=== PATIENT | female | born 1960 | race African-American/Black ===

== ENCOUNTER 2017-04-08 11:03 | Observation (INO) | payer OTHER ==
--- NOTE | 2017-04-08 11:35 | PDOC ---
History of Present Illness - General Chief Complaint: Injury Stated Complaint: FALL Time Seen by Provider: 04/08/17 11:23 History Source: Patient Exam Limitations: No Limitations - History of Present Illness Initial Comments: 04/08/17 11:35 CHIEF COMPLAINT: Syncopal episode yesterday sent from the [facility] for CT scan of the head HISTORY OF PRESENT ILLNESS: Patient is a 57-year-old female with history of hep C, HIV, hypertension, renal insufficiency was seen at the [facility] by Kimberly today, patient described to practitioner that she may have had a syncopal episode yesterday woke up with the headache had c/o dizziness and "blacked out for a second". Patient slid to the floor remembers the entire incident at the Center today EKG performed unchanged from previous case was discussed with Dr. Aragon wanted patient to come to emergency department for Syncopal workup. Patient currently denies any headache, no LOC, ambulatory without difficulty. No chest pain or shortness of breath. Vital signs are stable. Patient denies any neurological deficits. MEDS:[ See medication list] ALLERGIES: [Penicillin, aspirin, ibuprofen, eggs, prochlorperazine] PCP: [Dr. Aragon] REVIEW OF SYSTEMS: GENERAL/CONSTITUTIONAL: Awake alert and oriented HEAD, EYES, EARS, NOSE AND THROAT: No change in vision. No facial edema, no bruising. NO active bleeding. Nares intact. RESPIRATORY: No cough, wheezing, or hemoptysis. CARDIAC: Denies chest pain, no shortness of breathe. MUSCULOSKELETAL: No spinal point tenderness, Good ROM to all four extremeties. NO CVA tenderness. [No] lateral neck pain. GI/: Denies abdominal pain, no nausea or vomiting, no bloody stool, no Hematuria. SKIN : No erythema or bruising noted. No abrasion or lacerations. NEUROLOGIC: LOC for "a few seconds" , no numbness or tingling. PHYSICAL EXAM: GENERAL: Awake and alert and oriented x3. EYES: The pupils are equal, round, and reactive to light, with clear, conjunctiva. Good extraocular movement. No nystagmus NOSE: No nasal trauma . Midface stable MOUTH: Poor dentition EARS: The ear canals and tympanic membranes are normal without trauma. No drainage. NECK: No Lower cervical C-spine tenderness, no pain with chin to chest. CHEST: The lungs are clear without crackles, or wheezes. No subcutaneous emphysema. No crepitus. HEART: Heart is regular rhythm, with normal S1 and S2, no murmurs. ABDOMEN: The abdomen is soft and nontender with normal bowel sounds. There is no guarding or rebound. MUSCULOSKELETAL: No spinal point tenderness. No bruising or erythema. Pelvis stable. EXTREMITIES: Extremities are normal. No visible traumatic injury. NEUROLOGICAL:Mental status: The patient is oriented x3. No Generalized headache , Romberg [-] Cranial nerves: Cranial nerves II through XII are intact Motor: The upper extremities are 5 over 5 in all muscle groups. The lower extremities are 5 over 5 in all muscle groups. Sensation: Sensation is intact to light touch throughout. Cerebellar: Nglcjt-pnphtu-[id number] is normal in both upper extremities. Heel-knee- vanegas is normal in both lower extremities. Reflexes: 2+ and symmetric in the upper and lower extremities. Gait: Normal. Heel and toe walking are normal. Tandem gait is normal. SKIN: Without edema, erythema or bruising. No abrasions or lacerations. Past History - Past Medical History Allergies/Adverse Reactions: Allergies Allergy/AdvReac Type Severity Reaction Status Date / Time Penicillins Allergy Severe Verified 04/08/17 11:09 aspirin Allergy Intermediate Verified 04/08/17 11:09 ibuprofen Allergy Intermediate Verified 04/08/17 11:09 prochlorperazine edisylate Allergy Intermediate Verified 04/08/17 11:09 [From Compazine] eggs Allergy Intermediate Uncoded 04/08/17 11:09 Home Medications: Ambulatory Orders Albuterol 0.083% Nebulizer Zahira [Ventolin 0.083% Nebulizer Soln -] 1 neb NEB Q6H #1 box 10/15/16 Ondansetron [Zofran -] 4 mg PO DAILY #30 tablet 10/15/16 Acetaminophen [Tylenol] 1 - 2 dis.syr PO BID PRN #60 tablet 12/30/16 Mirtazapine [Remeron -] 30 mg PO DAILY #30 tablet 03/12/17 Zolpidem Tartrate [Ambien] 10 mg PO HS #30 tablet MDD 1 03/12/17 Abacavir Sulfate [Ziagen -] 300 mg PO BID #60 tablet 04/01/17 Albuterol Sulfate Inhaler - [Ventolin HFA Inhaler -] 2 inh PO Q6H #1 inh Amlodipine Besylate/Benazepril [Lotrel 5-10 mg Capsule] 1 cap PO DAILY #30 cap 04/01/17 Calcium Carbonate/Vitamin D3 [Calcium 500 + Vit D Caplet] 1 each PO BID #60 tablet 04/01/17 Lamivudine [Epivir -] 150 mg PO ONCE #30 tablet 04/01/17 Lopinavir/Ritonavir [Kaletra 200-50 mg Tablet] 1 each PO BID #120 tablet Loratadine [Claritin -] 10 mg PO DAILY #30 tablet 04/01/17 Multivitamin,Therapeutic [Oncovite] 1 each PO DAILY #30 tablet 04/01/17 Anemia: Yes Asthma: Yes Cancer: No Cardiac Disorders: No CVA: No COPD: No CHF: No Dementia: No Diabetes: No GI Disorders: No Disorders: No HTN: Yes Hypercholesterolemia: No Liver Disease: Yes (HEP C) Seizures: No Thyroid Disease: No - Surgical History Abdominal Surgery: Yes Appendectomy: No Cardiac Surgery: No Cholecystectomy: No Lung Surgery: No Neurologic Surgery: Yes (HEMATOMA NO SX) Orthopedic Surgery: No - Suicide/Smoking/Psychosocial Hx Smoking History: Never smoked Have you smoked in the past 12 months: No Number of Cigarettes Smoked Daily: 0 If you are a former smoker, when did you quit?: 11YRS Cigars Per Day: 0 Hx Alcohol Use: No Drug/Substance Use Hx: No Substance Use Type: None Hx Substance Use Treatment: No *Physical Exam - Vital Signs Last Vital Signs Temp Pulse Resp BP Pulse Ox 97.9 F 80 19 138/87 99 04/08/17 11:09 04/08/17 11:09 04/08/17 11:09 04/08/17 11:09 04/08/17 11:09 ED Treatment Course - LABORATORY CBC & Chemistry Diagram: 04/08/17 12:15 04/08/17 12:15 Medical Decision Making - Medical Decision Making 04/08/17 11:44 A/P: Patient sent to the emergency department for syncopal episode yesterday, denies any current complaint. Plan: Patient to be seen in main emergency department, CT of the head ordered CBC, CMP, cardiac enzymes, saline lock, EKG. Patient will be transferred to main emergency department after CT scan for further evaluation and workup., Report to Magdalena GONZALEZ . *DC/Admit/Observation/Transfer Diagnosis at time of Disposition: Syncope, Dizziness - Referrals - Patient Instructions - Post Discharge Activity
--- NOTE | 2017-04-08 12:25 | PDOC ---
*Physical Exam - Vital Signs Last Vital Signs Temp Pulse Resp BP Pulse Ox 97.9 F 80 19 138/87 99 04/08/17 11:09 04/08/17 11:09 04/08/17 11:09 04/08/17 11:09 04/08/17 11:09 Heart Score/ECG Review - ECG Intrepretation Rhythm: Regular Rhythm (rate 74 with a right bundle branch block. When compared to 2014 right bundle branch block is new.) ED Treatment Course - LABORATORY CBC & Chemistry Diagram: 04/08/17 12:15 04/09/17 05:25 Medical Decision Making - Medical Decision Making 04/08/17 12:03 Patient sent to the main ED for further evaluation of syncopal episode yesterday. Patient states yesterday was walking the streets when she had felt dizzy without any chest pain shortness of breath or visual changes when next thing she knows she woke up on the ground with by standard surrounding her. As per bystanders patient had no generalized tremor or vomiting. Patient then went to her primary care physician at [facility] today where she seen for HIV and had mentioned the above. Patient had a EKG done and then sent to the hospital for further evaluation. Patient upon my arrival had a head CT completed labs are pending and EKG pending. Patient is currently asymptomatic with no complaints of headache visual changes, chest pain or shortness of breath. Patient states does have history of headaches and this was not the worst headache of her life. 04/08/17 12:[address] shows no appreciable interval change from 07/13/2013 for evidence of intracranial hemorrhage, mass effect or hydrocephalus. 04/08/17 13:50 Laboratory Tests 04/08/17 04/08/17 12:15 12:15 WBC 4.9 Hgb 11.8 Hct 37.5 Plt Count 261 Sodium 143 Potassium 3.9 Chloride 108 H Carbon Dioxide 26 Anion Gap 9 BUN 10 D Creatinine 1.0 Random Glucose 94 AST 17 D ALT 15 Alkaline Phosphatase 121 H Troponin I < 0.02 Patient unable to recall if she has history of right bundle branch block. 04/08/17 14:23 Case discussed with hospitalist and accepted to telemetry observation status under Dr. Angelo. *DC/Admit/Observation/Transfer Diagnosis at time of Disposition: Syncope, Dizziness - Discharge Dispostion Disposition: HOME Condition at time of disposition: Good Admit: Yes - Referrals - Patient Instructions - Post Discharge Activity
[2017-04-08 12:44] LABS: BASO % 0.4 % (0-2.0); EOS % 2.2 % (0-4.5); MCH 29.5 pg (25.7-33.7); MCHC 31.4 g/dl (32.0-36.0); MEAN CELL VOLUME 93.8 fl (80-96); MEAN PLT VOLUME 7.5 fl (7.5-11.1); NEUT % 54.8 % (42.8-82.8); PLATELET COUNT 261 K/MM3 (134-434); RDW 14.3 % (11.6-15.6); WHITE BLOOD COUNT 4.9 K/mm3 (4.0-10.0)
[2017-04-08 13:09] LABS: ANION GAP 9 (8-16); CALCIUM 9.4 mg/dL (8.5-10.1); CO2 26 mmol/L (21-32); GLUCOSE,RANDOM 94 mg/dL (74-106); SGPT/ALT 15 U/L (12-78)
[2017-04-08 13:13] LABS: ALK PHOS 121 U/L (45-117); BILIRUBIN,TOTAL 0.2 mg/dL (0.2-1.0); CPK 162 IU/L (26-192); TOT PROT 7.9 g/dl (6.4-8.2); TROPONIN I < 0.02 ng/ml (0.00-0.05)
[2017-04-08 13:14] LABS: SGOT/AST 17 U/L (15-37)
--- NOTE | 2017-04-08 14:46 | HP ---
CHIEF COMPLAINT: PCP: HISTORY OF PRESENT ILLNESS: ER course was notable for: (1) (2) (3) Recent Travel: PAST MEDICAL HISTORY: PAST SURGICAL HISTORY: Social History: Smoking: Alcohol: Drugs: Family History: Allergies Penicillins Allergy (Severe, Verified 04/08/17 11:09) Rash, vomiting aspirin Allergy (Intermediate, Verified 04/08/17 11:09) ibuprofen Allergy (Intermediate, Verified 04/08/17 11:09) prochlorperazine edisylate [From Compazine] Allergy (Intermediate, Verified 11:09) eggs Allergy (Intermediate, Uncoded 04/08/17 11:09) HOME MEDICATIONS: Home Medications Medication Instructions Recorded Albuterol 0.083% Nebulizer Zahira 1 neb NEB Q6H #1 box 10/15/16 [Ventolin 0.083% Nebulizer Soln -] Ondansetron [Zofran -] 4 mg PO DAILY #30 tablet 10/15/16 Acetaminophen [Tylenol] 1 - 2 dis.syr PO BID PRN #60 tablet 12/30/16 Mirtazapine [Remeron -] 30 mg PO DAILY #30 tablet 03/12/17 Zolpidem Tartrate [Ambien] 10 mg PO HS #30 tablet MDD 1 03/12/17 Abacavir Sulfate [Ziagen -] 300 mg PO BID #60 tablet 04/01/17 Albuterol Sulfate Inhaler - 2 inh PO Q6H #1 inh 04/01/17 [Ventolin HFA Inhaler -] Amlodipine Besylate/Benazepril 1 cap PO DAILY #30 cap 04/01/17 [Lotrel 5-10 mg Capsule] Calcium Carbonate/Vitamin D3 1 each PO BID #60 tablet 04/01/17 [Calcium 500 + Vit D Caplet] Lamivudine [Epivir -] 150 mg PO ONCE #30 tablet 04/01/17 Lopinavir/Ritonavir [Kaletra 1 each PO BID #120 tablet 04/01/17 200-50 mg Tablet] Loratadine [Claritin -] 10 mg PO DAILY #30 tablet 04/01/17 Multivitamin,Therapeutic [Oncovite] 1 each PO DAILY #30 tablet 04/01/17 REVIEW OF SYSTEMS CONSTITUTIONAL: Absent: fever, chills, diaphoresis, generalized weakness, malaise, loss of appetite, weight change HEENT: Absent: rhinorrhea, nasal congestion, throat pain, throat swelling, difficulty swallowing, mouth swelling, ear pain, eye pain, visual changes CARDIOVASCULAR: Absent: chest pain, syncope, palpitations, irregular heart rate, lightheadedness , peripheral edema RESPIRATORY: Absent: cough, shortness of breath, dyspnea with exertion, orthopnea, wheezing, stridor, hemoptysis GASTROINTESTINAL: Absent: abdominal pain, abdominal distension, nausea, vomiting, diarrhea, constipation, melena, hematochezia GENITOURINARY: Absent: dysuria, frequency, urgency, hesitancy, hematuria, flank pain, genital pain MUSCULOSKELETAL: Absent: myalgia, arthralgia, joint swelling, back pain, neck pain SKIN: Absent: rash, itching, pallor HEMATOLOGIC/IMMUNOLOGIC: Absent: easy bleeding, easy bruising, lymphadenopathy, frequent infections ENDOCRINE: Absent: unexplained weight gain, unexplained weight loss, heat intolerance, cold intolerance NEUROLOGIC: Absent: headache, focal weakness or paresthesias, dizziness, unsteady gait, seizure, mental status changes, bladder or bowel incontinence PSYCHIATRIC: Absent: anxiety, depression, suicidal or homicidal ideation, hallucinations. PHYSICAL EXAMINATION Vital Signs - 24 hr 04/08/17 11:09 Temperature 97.9 F Pulse Rate 80 Respiratory 19 Rate Blood Pressure 138/87 O2 Sat by Pulse 99 Oximetry (%) GENERAL: Awake, alert, and fully oriented, in no acute distress. HEAD: Normal with no signs of trauma. EYES: Pupils equal, round and reactive to light, extraocular movements intact, sclera anicteric, conjunctiva clear. No lid lag. EARS, NOSE, THROAT: Ears normal, nares patent, oropharynx clear without exudates. Moist mucous membranes. NECK: Normal range of motion, supple without lymphadenopathy, JVD, or masses. LUNGS: Breath sounds equal, clear to auscultation bilaterally. No wheezes, and no crackles. No accessory muscle use. HEART: Regular rate and rhythm, normal S1 and S2 without murmur, rub or gallop. ABDOMEN: Soft, nontender, not distended, normoactive bowel sounds, no guarding, no rebound, no masses. No hepatomegaly or splenomegaly. MUSCULOSKELETAL: Normal range of motion at all joints. No bony deformities or tenderness. No CVA tenderness. UPPER EXTREMITIES: 2+ pulses, warm, well-perfused. No cyanosis. No clubbing. No peripheral edema. LOWER EXTREMITIES: 2+ pulses, warm, well-perfused. No calf tenderness. No peripheral edema. NEUROLOGICAL: Cranial nerves II-XII intact. Normal speech. Normal gait. PSYCHIATRIC: Cooperative. Good eye contact. Appropriate mood and affect. SKIN: Warm, dry, normal turgor, no rashes or lesions noted, normal capillary refill. Laboratory Results - last 24 hr 04/08/17 04/08/17 12:15 12:15 WBC 4.9 RBC 4.00 Hgb 11.8 Hct 37.5 MCV 93.8 MCH 29.5 MCHC 31.4 L RDW 14.3 Plt Count 261 MPV 7.5 Neutrophils % 54.8 Lymphocytes % 34.1 Monocytes % 8.5 Eosinophils % 2.2 Basophils % 0.4 Sodium 143 Potassium 3.9 Chloride 108 H Carbon Dioxide 26 Anion Gap 9 BUN 10 D Creatinine 1.0 Creat Clearance w eGFR 57.15 Random Glucose 94 Calcium 9.4 Total Bilirubin 0.2 D AST 17 D ALT 15 Alkaline Phosphatase 121 H Creatine Kinase 162 Creatine Kinase Index 0.8 CK-MB (CK-2) 1.342 Troponin I < 0.02 Total Protein 7.9 Albumin 4.0 ASSESSMENT/PLAN:
--- NOTE | 2017-04-08 15:36 | HP ---
CHIEF COMPLAINT: Syncopal episode PCP: Kimberly Chandra HISTORY OF PRESENT ILLNESS: Patient is a 57 year old female with a PMHx of HIV, Hep C, HTN who was advised to come in today by her PCP after a syncopal episode. Patient reports yesterday morning she woke up with a diffuse headache that was initially mild associated with dizziness. On her way to her daughters house to roller picker her grand kids she started feeling lightheaded with worsening headache and fell to the ground. Patient states she remembers the whole event and did not lose consciousness. Patient denies hitting her head. She denies any similar episode in the past. Patient also denies any chest pain, palpitations, shortness of breath or dizziness before during or after the episode. Patient denies any dyspnea on exertion or orthopnea. Patient denies being around sick contacts. Patient does report consuming adequate amount of water daily. Otherwise, patient denies fever, chills, nausea, vomiting, abdominal pain, dysuria, hematuria, frequency, night sweats, acute vision change . ER course was notable for: (1) CT head which revealed no acute pathology (2) (3) Recent Travel: Denies PAST MEDICAL HISTORY: HIV (Last CD4 539 and viral load undetectable on 03/25/17) , Hepatitis C (not treated but being monitored), HTN, Anemia, Asthma. PAST SURGICAL HISTORY: Two C-sections (1993 and 1996), Myomectomy, Peg tube placement that was eventually removed Social History: Smoking: Denies Alcohol: Denies Drugs: Denies Family History: Mother from heart failure at age 29. Sisters and aunts all had heart problems at a young age Allergies: Penicillins Allergy (Severe, Verified 04/08/17 11:09) Rash, vomiting aspirin Allergy (Intermediate, Verified 04/08/17 11:09) ibuprofen Allergy (Intermediate, Verified 04/08/17 11:09) prochlorperazine edisylate [From Compazine] Allergy (Intermediate, Verified 11:09) eggs Allergy (Intermediate, Uncoded 04/08/17 11:09) HOME MEDICATIONS: Home Medications Medication Instructions Recorded Albuterol 0.083% Nebulizer Zahira 1 neb NEB Q6H #1 box 10/15/16 [Ventolin 0.083% Nebulizer Soln -] Ondansetron [Zofran -] 4 mg PO DAILY #30 tablet 10/15/16 Acetaminophen [Tylenol] 1 - 2 dis.syr PO BID PRN #60 tablet 12/30/16 Mirtazapine [Remeron -] 30 mg PO DAILY #30 tablet 03/12/17 Zolpidem Tartrate [Ambien] 10 mg PO HS #30 tablet MDD 1 03/12/17 Abacavir Sulfate [Ziagen -] 300 mg PO BID #60 tablet 04/01/17 Albuterol Sulfate Inhaler - 2 inh PO Q6H #1 inh 04/01/17 [Ventolin HFA Inhaler -] Amlodipine Besylate/Benazepril 1 cap PO DAILY #30 cap 04/01/17 [Lotrel 5-10 mg Capsule] Calcium Carbonate/Vitamin D3 1 each PO BID #60 tablet 04/01/17 [Calcium 500 + Vit D Caplet] Lamivudine [Epivir -] 150 mg PO ONCE #30 tablet 04/01/17 Lopinavir/Ritonavir [Kaletra 1 each PO BID #120 tablet 04/01/17 200-50 mg Tablet] Loratadine [Claritin -] 10 mg PO DAILY #30 tablet 04/01/17 Multivitamin,Therapeutic [Oncovite] 1 each PO DAILY #30 tablet 04/01/17 REVIEW OF SYSTEMS CONSTITUTIONAL: Absent: fever, chills, diaphoresis, generalized weakness, malaise, loss of appetite, weight change HEENT: Absent: rhinorrhea, nasal congestion, throat pain, throat swelling, difficulty swallowing, mouth swelling, ear pain, eye pain, visual changes CARDIOVASCULAR: syncope, lightheadedness Absent: chest pain, palpitations, irregular heart rate, peripheral edema RESPIRATORY: Absent: cough, shortness of breath, dyspnea with exertion, orthopnea, wheezing, stridor, hemoptysis GASTROINTESTINAL: Absent: abdominal pain, abdominal distension, nausea, vomiting, diarrhea, constipation, melena, hematochezia GENITOURINARY: Absent: dysuria, frequency, urgency, hesitancy, hematuria, flank pain, genital pain MUSCULOSKELETAL: Absent: myalgia, arthralgia, joint swelling, back pain, neck pain SKIN: Absent: rash, itching, pallor HEMATOLOGIC/IMMUNOLOGIC: Absent: easy bleeding, easy bruising, lymphadenopathy, frequent infections ENDOCRINE: Absent: unexplained weight gain, unexplained weight loss, heat intolerance, cold intolerance NEUROLOGIC: headache Absent: focal weakness or paresthesias, dizziness, unsteady gait, seizure, mental status changes, bladder or bowel incontinence PSYCHIATRIC: Absent: anxiety, depression, suicidal or homicidal ideation, hallucinations. PHYSICAL EXAMINATION Vital Signs - 24 hr 04/08/17 11:09 Temperature 97.9 F Pulse Rate 80 Respiratory 19 Rate Blood Pressure 138/87 O2 Sat by Pulse 99 Oximetry (%) GENERAL: Awake, alert, and fully oriented, in no acute distress. HEAD: Normal with no signs of trauma. EYES: Pupils equal, round and reactive to light, extraocular movements intact, sclera anicteric, conjunctiva clear. No lid lag. EARS, NOSE, THROAT: Oropharynx clear without exudates. Moist mucous membranes. NECK: Normal range of motion, supple without lymphadenopathy, JVD, or masses. LUNGS: Breath sounds equal, clear to auscultation bilaterally. No wheezes, and no crackles. No accessory muscle use. HEART: Regular rate and rhythm, normal S1 and S2 without murmur, rub or gallop. ABDOMEN: Soft, nontender, not distended, normoactive bowel sounds, no guarding, no rebound, no masses. No hepatomegaly or splenomegaly. Vertical incision scar below the umbilicus MUSCULOSKELETAL: No CVA tenderness. UPPER EXTREMITIES: No peripheral edema. LOWER EXTREMITIES: No peripheral edema. NEUROLOGICAL: Cranial nerves II-XII intact. Normal speech. No Facial droop. Motor strength 5/5 bilaterally, sensory intact, Knee reflex 2+ bilaterally, Biceps reflex 2+ bilaterally. DP pulses 2+ bilaterally. Radial pulses 2+ PSYCHIATRIC: Cooperative. Good eye contact. Appropriate mood and affect. SKIN: Warm, dry, normal turgor, no rashes or lesions noted, normal capillary refill. Laboratory Results - last 24 hr 04/08/17 04/08/17 12:15 12:15 WBC 4.9 RBC 4.00 Hgb 11.8 Hct 37.5 MCV 93.8 MCH 29.5 MCHC 31.4 L RDW 14.3 Plt Count 261 MPV 7.5 Neutrophils % 54.8 Lymphocytes % 34.1 Monocytes % 8.5 Eosinophils % 2.2 Basophils % 0.4 Sodium 143 Potassium 3.9 Chloride 108 H Carbon Dioxide 26 Anion Gap 9 BUN 10 D Creatinine 1.0 Creat Clearance w eGFR 57.15 Random Glucose 94 Calcium 9.4 Total Bilirubin 0.2 D AST 17 D ALT 15 Alkaline Phosphatase 121 H Creatine Kinase 162 Creatine Kinase Index 0.8 CK-MB (CK-2) 1.342 Troponin I < 0.02 Total Protein 7.9 Albumin 4[address](04/08/17): No acute pathology. Nonspecific hypoattenuation within the cerebral white matter likely represents moderate microvascular ischemic changes. ASSESSMENT/PLAN: Patient is a 57 year old female who was sent by her PCP s/p syncopal episode. Patient admitted for observation for further monitoring and management. Syncopal Episode -Rule out Cardiac etiology vs neurological etiology vs infectious etiology -Head CT negative -EKG revealed RBBB with no ST-T elevations or depression -No electrolytes abnormalities seen. Magnesium and phosphorus levels ordered -TSH ordered -Cardiac monitoring to rule out any arrythmias -ECHO ordered to assess Valve functions -Orthostatics ordered -Urinalysis ordered to rule out any infection -Carotid Doppler ordered for any stenosis -Lipid Panel done 2 weeks ago. -Continue to monitor Electrolytes and cardiac monitoring Elevated Alk Phos -Patient had level of 121, which is around baseline -GGT ordered. Last one in 2010 -Continue to monitor HIV -Being followed at [facility] -Last CD4 on 539 and viral load undetected on 03/25/17 -Continue home medications Epiver 150mg daily, Kaletra 200-50 BID, Ziagen 300mg BID HTN-Controlled -Continue home medication Lotrel 5-10mg daily -Continue to monitor BP Hepatitis C -Currently being monitored at [facility] -On no medications as patients LFT's have been wnl Asthma-Controlled -In no acute exacerbation -Has no used her inhalers -Albuterol PRN Anxiety/Depression/Insomnia -Continue home medication Remeron 30mg daily -Continue Ambien 10mg daily F/E/N -On no fluids. Tolerates PO -Electrolytes wnl. Continue to monitor -Sodium controlled diet Prophylaxis -Moderate risk. Heparin 5000 units SQ Q8H for DVT -No GI required Disposition -Full code -Will need Overnight cardiac monitoring to rule out arrhythmias. Will remain in observation for the next 24 hours Visit type - Emergency Visit Emergency Visit: Yes ED Registration Date: 04/08/17 Care time: The patient presented to the Emergency Department on the above date and was hospitalized for further evaluation of their emergent condition. - New Patient This patient is new to me today: Yes Date on this admission: 04/08/17 - Critical Care Critical Care patient: No
[2017-04-08 16:04] LABS: PHOSPHOROUS 3.8 mg/dL (2.5-4.9)
[2017-04-08 16:12] LABS: THYROID STIMULATING HORMONE 2.55 uIU/ml (0.358-3.74)
[2017-04-08 16:29] VITALS: BMI 23.3
[2017-04-08 16:38] LABS: MAGNESIUM 2.2 mg/dL (1.8-2.4)
--- NOTE | 2017-04-08 17:10 | PN ---
Teaching Attending Note Name of Resident: Lali Patterson ATTENDING PHYSICIAN STATEMENT I saw and evaluated the patient. I reviewed the resident's note and discussed the case with the resident. I agree with the resident's findings and plan as documented. SUBJECTIVE: This is a 57 year old woman with a history of HTN, HIV, hepatitis C who was sent in to the ER for evaluation of a possible syncopal episode yesterday. She reports that she awoke with a headache ysterday. She developed lightheadedness and fell. She thinks she might have lost consciousness very briefly. She has no complaints today. OBJECTIVE: Vital Signs Period Temp Pulse Resp BP Sys/Stein Pulse Ox Last 24 Hr 97.9 F 62-80 18-19 136-148/79-93 99-100 HEART: S1S2, RRR LUNGS: Clear ABDOMEN: Soft, non-tender, non-distended, normal BS EXTREMITIES: No edema NEUROLOGICAL: Alert, oriented, no focal deficits Laboratory Tests 04/08/17 04/08/17 12:15 12:15 WBC 4.9 RBC 4.00 Hgb 11.8 Hct 37.5 MCV 93.8 MCH 29.5 MCHC 31.4 L RDW 14.3 Plt Count 261 MPV 7.5 Neutrophils % 54.8 Lymphocytes % 34.1 Monocytes % 8.5 Eosinophils % 2.2 Basophils % 0.4 Sodium 143 Potassium 3.9 Chloride 108 H Carbon Dioxide 26 Anion Gap 9 BUN 10 D Creatinine 1.0 Creat Clearance w eGFR 57.15 Random Glucose 94 Calcium 9.4 Phosphorus 3.8 Magnesium 2.2 Total Bilirubin 0.2 D AST 17 D ALT 15 Alkaline Phosphatase 121 H Creatine Kinase 162 Creatine Kinase Index 0.8 CK-MB (CK-2) 1.342 Troponin I < 0.02 Total Protein 7.9 Albumin 4.0 TSH 2.55 D Home Medications Medication Instructions Recorded Albuterol 0.083% Nebulizer Zahira 1 neb NEB Q6H #1 box 10/15/16 [Ventolin 0.083% Nebulizer Soln -] Ondansetron [Zofran -] 4 mg PO DAILY #30 tablet 10/15/16 Acetaminophen [Tylenol] 1 - 2 dis.syr PO BID PRN #60 tablet 12/30/16 Mirtazapine [Remeron -] 30 mg PO DAILY #30 tablet 03/12/17 Zolpidem Tartrate [Ambien] 10 mg PO HS #30 tablet MDD 1 03/12/17 Abacavir Sulfate [Ziagen -] 300 mg PO BID #60 tablet 04/01/17 Albuterol Sulfate Inhaler - 2 inh PO Q6H #1 inh 04/01/17 [Ventolin HFA Inhaler -] Amlodipine Besylate/Benazepril 1 cap PO DAILY #30 cap 04/01/17 [Lotrel 5-10 mg Capsule] Calcium Carbonate/Vitamin D3 1 each PO BID #60 tablet 04/01/17 [Calcium 500 + Vit D Caplet] Lamivudine [Epivir -] 150 mg PO ONCE #30 tablet 04/01/17 Lopinavir/Ritonavir [Kaletra 1 each PO BID #120 tablet 04/01/17 200-50 mg Tablet] Loratadine [Claritin -] 10 mg PO DAILY #30 tablet 04/01/17 Multivitamin,Therapeutic [Oncovite] 1 each PO DAILY #30 tablet 04/01/17 ASSESSMENT AND PLAN: This is a 57 year old woman with a history of HTN, HIV, hepatitis C who was presented to the ER for evaluation of headache, lightheadedness and possible syncope yesterday. 1. Possible syncope - Observe on telemetry - Echocardiogram - Carotid dopplers - Orthostatic vitals 2. HTN - Continue Lotrel 3. HIV - Continue Epivir, Kaletra, Ziagen 4. Hepatitis C 5. Asthma - Stable - Continue albuterol as needed 6. Depression with anxiety - Continue Remeron
--- NOTE | 2017-04-08 20:59 | EKG ---
Test Reason : Blood Pressure : / mmHG Vent. Rate : 074 BPM Atrial Rate : 074 BPM P-R Int : 170 ms QRS Dur : 128 ms QT Int : 422 ms P-R-T Axes : 029 001 033 degrees QTc Int : 468 ms POOR DATA QUALITY, INTERPRETATION MAY BE ADVERSELY AFFECTED NORMAL SINUS RHYTHM RIGHT BUNDLE BRANCH BLOCK INFERIOR INFARCT (CITED ON OR BEFORE 08-APR-2017) ABNORMAL ECG WHEN COMPARED WITH ECG OF 08-APR-2017 09:36, NO SIGNIFICANT CHANGE WAS FOUND Confirmed by MD TEJAL, JOVON ([id number]) on 04/08/2017 8:59:40 PM Referred By: Confirmed By:JOVON TOURE MD
[2017-04-08] MEDS ORDERED: ZOLPIDEM TARTRATE 5 MG TABLET PO PRN (22:00)
[2017-04-08] MEDS ORDERED: MIRTAZAPINE 30 MG TABLET (FP) PO SCH (22:00)
[2017-04-08] MEDS: lamiVUDine 150 MG TABLET PO SCH (23:01)
[2017-04-08] MEDS: RITONAVIR/LOPINAVIR 50MG/200MG 1 COMBO TABLET PO SCH (23:02)
[2017-04-08] MEDS: ABACAVIR SULFATE 300 MG TABLET PO SCH ×2 (23:02→23:41)
[2017-04-08] MEDS: HEPARIN NA (PORCINE) 5,000 UNITS/ML 1ML VIAL SQ SCH (23:02)
[2017-04-08] MEDS ORDERED: ONDANSETRON 4 MG/2 ML VIAL IVPUSH ONE (23:29)
[2017-04-09] MEDS: HEPARIN NA (PORCINE) 5,000 UNITS/ML 1ML VIAL SQ SCH ×2 (05:22→14:03)
--- NOTE | 2017-04-09 07:33 | PN ---
Physical Exam: SUBJECTIVE: No complaints overnight. No events noted on monitor. Pt only complaint is mild frontal headache. Pt's previous symptoms have completely resolved. Pt elaborated on how she woke up yesterday and felt dizzy, ate breakfast and drank one and a half bottles of [employer] water and OBJECTIVE: Vital Signs Period Temp Pulse Resp BP Sys/Stein Pulse Ox Last 24 Hr 97.9 F-98.6 F 62-80 18-19 132-149/62-93 99-100 GENERAL: The patient is awake, alert, and fully oriented, in no acute distress. HEAD: Normal with no signs of trauma. EYES: PERRL, extraocular movements intact, sclera anicteric, conjunctiva clear. No ptosis. ENT: Ears normal, nares patent, oropharynx clear without exudates, moist mucous membranes. NECK: Trachea midline, full range of motion, supple. LUNGS: Breath sounds equal, clear to auscultation bilaterally, no wheezes, no crackles, no accessory muscle use. HEART: Regular rate and rhythm, S1, S2 without murmur, rub or gallop. ABDOMEN: Soft, nontender, nondistended, normoactive bowel sounds, no guarding, no rebound, no hepatosplenomegaly, no masses. EXTREMITIES: 2+ pulses, warm, well-perfused, no edema. NEUROLOGICAL: Cranial nerves II through XII grossly intact. Normal speech, gait not observed. PSYCH: Normal mood, normal affect. SKIN: Warm, dry, normal turgor, no rashes or lesions noted Laboratory Results - last 24 hr 04/08/17 04/08/17 04/08/17 12:15 12:15 14:32 WBC 4.9 RBC 4.00 Hgb 11.8 Hct 37.5 MCV 93.8 MCH 29.5 MCHC 31.4 L RDW 14.3 Plt Count 261 MPV 7.5 Neutrophils % 54.8 Lymphocytes % 34.1 Monocytes % 8.5 Eosinophils % 2.2 Basophils % 0.4 Sodium 143 Potassium 3.9 Chloride 108 H Carbon Dioxide 26 Anion Gap 9 BUN 10 D Creatinine 1.0 Creat Clearance w eGFR 57.15 Random Glucose 94 Calcium 9.4 Phosphorus 3.8 Magnesium 2.2 Total Bilirubin 0.2 D GGT 33 AST 17 D ALT 15 Alkaline Phosphatase 121 H Creatine Kinase 162 Creatine Kinase Index 0.8 CK-MB (CK-2) 1.342 Troponin I < 0.02 Total Protein 7.9 Albumin 4.0 TSH 2.55 D Active Medications Generic Name Dose Route Start Last Admin Trade Name Sona PRN Reason Stop Dose Admin Abacavir Sulfate 300 mg 04/08/17 22:00 04/08/17 23:41 Ziagen - PO Not Given BID [facility] Amlodipine Besylate 5 mg 04/09/17 10:00 Norvasc - PO DAILY [facility] Heparin Sodium (Porcine) 5,000 unit 04/08/17 22:00 04/09/17 05:22 Heparin - SQ 5,000 unit TID [facility] Administration Lamivudine 150 mg 04/08/17 22:00 04/08/17 23:01 Epivir - PO 150 mg DAILY [facility] Administration Lisinopril 10 mg 04/09/17 10:00 Prinivil PO DAILY [facility] Lopinavir/Ritonavir 1 tablet 04/08/17 22:00 04/08/17 23:02 Kaletra 200mg/50mg - PO 1 tablet BID [facility] Administration Mirtazapine 30 mg 04/08/17 22:00 04/08/17 23:01 Remeron - PO 30 mg HS [facility] Administration Zolpidem Tartrate 10 mg 04/08/17 22:00 Ambien - PO HS PRN ASSESSMENT/PLAN:
[2017-04-09] MEDS ORDERED: ACETAMINOPHEN 325 MG TABLET (FP) PO ONE (08:16)
[2017-04-09 08:29] LABS: ALBUMIN 3.4 g/dl (3.4-5.0); ANION GAP 8 (8-16); CALCIUM 8.8 mg/dL (8.5-10.1); CO2 27 mmol/L (21-32); GLUCOSE,RANDOM 81 mg/dL (74-106)
[2017-04-09 08:33] LABS: ALK PHOS 99 U/L (45-117); BILIRUBIN,TOTAL 0.4 mg/dL (0.2-1.0); CREATININE 0.9 mg/dL (0.55-1.02); SGOT/AST 12 U/L (15-37); SGPT/ALT 13 U/L (12-78)
[2017-04-09] MEDS ORDERED: PATIENT'S OWN MEDICATION (NON-FORMULARY) (Amlodipine Besylate/Benazepril [Lotrel 5-10 Mg C PO SCH (10:00)
[2017-04-09] MEDS ORDERED: LISINOPRIL 10 MG TABLET (FP) PO SCH (10:00)
[2017-04-09] MEDS ORDERED: amLODIPine BESYLATE 5 MG TABLET (FP) PO SCH (10:00)
[2017-04-09] MEDS ORDERED: ACETAMINOPHEN 325 MG TABLET (FP) ONE (10:56)
[2017-04-09] MEDS: lamiVUDine 150 MG TABLET PO SCH (10:57)
[2017-04-09] MEDS: RITONAVIR/LOPINAVIR 50MG/200MG 1 COMBO TABLET PO SCH (10:58)
[2017-04-09] MEDS: ABACAVIR SULFATE 300 MG TABLET PO SCH (10:58)
[2017-04-09 14:37] VITALS: BP 121/71; PULSE 79; TEMP 98.3
--- NOTE | 2017-04-09 15:01 | DS ---
Physical Exam: SUBJECTIVE: No acute events noted on monitor overnight. Pt's only complaint is that she has a slight frontal headache which is characteristic of her normal headaches. Pt denies lightheadedness, dizziness, visual changes, aura, auditory changes, SOB, CP/discomfort, palpitations, abdominal pain, urinary incontinence. OBJECTIVE: Vital Signs Period Temp Pulse Resp BP Sys/Stein Pulse Ox Last 24 Hr 97.5 F-98.6 F 62-80 18-18 119-149/62-93 99-100 PHYSICAL EXAM GENERAL: NAD, awake, alert, and fully oriented, laying comfortably in bed HEENT: NC/AT, No JVD noted, sclera anicteric without injections, moist mucosa with normal structures of mouth; no exudates or erythema noted in posterior oropharynx LUNGS: CTA bilaterally, no wheezes, rhonchi, rales noted. No accessory muscle use. HEART: RRR, S1, S2 without murmur. No carotid bruits auscultated ABDOMEN: Soft, nontender, nondistended, normoactive bowel sounds, no guarding, no hepatomegaly, no masses. EXTREMITIES: 2+ DP pulses, warm, well-perfused, no edema. NEUROLOGICAL: Cranial nerves II through XII grossly intact. Strength 5/5 diffusely in all four limbs. Sensation intact throughout. Normal speech, gait not observed. PSYCH: Normal mood, normal affect. SKIN: Warm, dry, no rashes or lesions noted, tattoos noted to b/l upper extremities including forearms LABS Laboratory Results - last 24 hr 04/08/17 04/08/17 04/09/17 12:15 14:32 05:25 Sodium 143 145 Potassium 3.9 3.7 Chloride 108 H 110 H Carbon Dioxide 26 27 Anion Gap 9 8 BUN 10 D 11 Creatinine 1.0 0.9 Creat Clearance w eGFR 57.15 > 60 Random Glucose 94 81 Calcium 9.4 8.8 Phosphorus 3.8 Magnesium 2.2 Total Bilirubin 0.2 D 0.4 D GGT 33 AST 17 D 12 L D ALT 15 13 Alkaline Phosphatase 121 H 99 Creatine Kinase 162 Creatine Kinase Index 0.8 CK-MB (CK-2) 1.342 Troponin I < 0.02 Total Protein 7.9 7.0 Albumin 4.0 3.4 TSH 2.55 D HOSPITAL COURSE: Date of Admission:04/08/17 Date of Discharge: 04/09/17 57yo F with history of HIV (CD4 on 539 and viral load undetected on 03/25/17), Hep C, HTN who presented to the ED advised by her PCP s/p syncopal episode after experiencing some lightheadedness and a frontal headache. Pt had Head CT without contrast performed revealing no acute pathology and an EKG showing an old RBBB with no ST abnormalities. CMP revealed no electrolyte abnormalities and TSH was WNL. Pt was placed on cardiac monitoring for observation and had orthostatics and echocardiogram performed which did not show any abnormalities. No events were recorded in the morning on cardiac monitoring and syncopal episode was attributed to volume contraction due to lack of hydration. Pt is being discharged in stable condition without symptoms with instructions to follow-up with her primary care physician. Pt understands this. Minutes to complete discharge: 30 Discharge Summary Reason For Visit: SYNCOPE Current Active Problems Dizziness (Acute) Syncope (Acute) AIDS (acquired immune deficiency syndrome) (Chronic) Anemia (Chronic) Chronic kidney disease (CKD) (Chronic) Hepatitis C infection (Chronic) Hypertension (Chronic) Condition: Good - Instructions Diet, Activity, Other Instructions: You were hospitalized due to your dizziness and lightheadedness spell We ruled out any problems with your heart or head. Please follow-up with you general medical doctor --If you do not have a general doctor feel free to make an appointment with Dr. Owen and Dr. Kohli at [phone] Please follow-up with a evaluator due to your family history and episodes of chest discomfort you described before --If you do not have a evaluator please feel free to contact Dr. Zeeshan Gallardo who's office number will be provided in your discharge packet If your symptoms return or worsen please call your doctor or see the nearest ER for further evaluation Medication Changes: --Please continue all of your medications as you were prior Advise to avoid driving or operating heavy machinery till next doctor visit and then as discussed. Do not drive or operate heavy machinery after taking any sleeping medication Maintain adequate hydration, drink plenty of fluids. Referrals: Kimberly Chandra NP [Primary Care Provider] - Zeeshan Gallardo MD [Staff Physician] - Disposition: HOME - Home Medications Comprehensive Discharge Medication List: Ambulatory Orders RX: Ondansetron [Zofran -] 4 mg PO DAILY #30 tablet 10/15/16 RX: Acetaminophen [Tylenol] 1 - 2 dis.syr PO BID PRN #60 tablet 12/30/16 RX: Mirtazapine [Remeron -] 30 mg PO DAILY #30 tablet 03/12/17 RX: Zolpidem Tartrate [Ambien] 10 mg PO HS #30 tablet MDD 1 03/12/17 RX: Abacavir Sulfate [Ziagen -] 300 mg PO BID #60 tablet 04/01/17 RX: Albuterol Sulfate Inhaler - [Ventolin HFA Inhaler -] 2 inh PO Q6H #1 inh 04/06 RX: Amlodipine Besylate/Benazepril [Lotrel 5-10 mg Capsule] 1 cap PO DAILY #30 cap 04/01/17 RX: Calcium Carbonate/Vitamin D3 [Calcium 500 + Vit D Caplet] 1 each PO BID #60 tablet 04/01/17 RX: Lamivudine [Epivir -] 150 mg PO ONCE #30 tablet 04/01/17 RX: Lopinavir/Ritonavir [Kaletra 200-50 mg Tablet] 1 each PO BID #120 tablet 04/06 RX: Loratadine [Claritin -] 10 mg PO DAILY #30 tablet 04/01/17 RX: Multivitamin,Therapeutic [Oncovite] 1 each PO DAILY #30 tablet 04/01/17 This patient is new to me today: Yes Date on this admission: 04/15/17 Emergency Visit: No Critical Care patient: No - Discharge Referral Referred to [facility] No
[2017-04-09] MEDS ORDERED: PT OWN MED DRAWER 7, Y5N ONE (16:16)
--- NOTE | 2017-04-09 17:15 | PN ---
Teaching Attending Note Name of Resident: Lionel Kohli ATTENDING PHYSICIAN STATEMENT Time of evaluation: 10:15 AM I saw and evaluated the patient. I reviewed the resident's note and discussed the case with the resident. I agree with the resident's findings and plan as documented. SUBJECTIVE: Patient seen and examined, no headache, dizziness or new complaints. reports small snack all day prior to the episode. Currently asymptomatic, no events overnight. OBJECTIVE: Vital Signs Period Temp Pulse Resp BP Sys/Stein Pulse Ox Last 24 Hr 97.5 F-98.6 F 64-80 18-18 119-149/62-89 99-100 Intake & Output 04/06/17 04/07/17 04/08/17 04/09/17 23:59 23:59 23:59 23:59 Intake Total 270 900 Balance 270 900 Weight 108 lb General: lying in bed in no acute distress CVS:S1S2 regular Chest: CTAB, no rales or wheezing abdomen: soft, NT, positive bowel sounds Tele reviewed, no events 2D echo reviewed carotid Duplex reviewed ASSESSMENT AND PLAN: -Dizziness -Presyncope Plan: symptoms resolved, no events on telemetry, 2dEcho and Carotid duplex noted. d/c with close outpatient follow up. Plan discussed with patient in detail, all questions answered.
== END 2017-04-09 18:08 | disposition home or self-care (01) ==
LOC: JER 11:03 → JERFT 11:03 → JERBED 14:26 → J4W 20:45
PROVIDERS: ADMIT Internal Medicine; ATTEND Hospitalist
PROC: 3E033GC Introduction of Other Therapeutic Substance into Peripheral Vein, Percutaneous Approach (ICD-10-PCS; principal; 2017-04-08)
PROC: 3E013GC Introduction of Other Therapeutic Substance into Subcutaneous Tissue, Percutaneous Approach (ICD-10-PCS; 2017-04-08)
DX: R55 Syncope and collapse (principal); R42 Dizziness and giddiness; I10 Essential (primary) hypertension; Z21 Asymptomatic human immunodeficiency virus [HIV] infection status; N28.9 Disorder of kidney and ureter, unspecified; D64.9 Anemia, unspecified; J45.909 Unspecified asthma, uncomplicated; B18.2 Chronic viral hepatitis C; I45.10 Unspecified right bundle-branch block; R79.89 Other specified abnormal findings of blood chemistry; F41.9 Anxiety disorder, unspecified; F32.9 Major depressive disorder, single episode, unspecified; G47.00 Insomnia, unspecified; Z88.0 Allergy status to penicillin; Z88.6 Allergy status to analgesic agent; Z91.012 Allergy to eggs
CPT/HCPCS: 36415; 70450-TC; 80053; 82550; 82553; 82977; 83735; 84100; 84443; 84484; 85025; 93005; 93010; 93306-TC; 93880-TC; 96372; 96374; 99285-25; G0378; J1644

== ENCOUNTER → 2018-12-15 | Outpatient (CLI) | payer OTHER | LOC: YHH 13:47 ==

== ENCOUNTER 2023-02-01 13:00 | Emergency (ER) | payer OTHER ==
[2023-02-01 13:12] VITALS: BP 159/89; PULSE 77; RESP 18; TEMP 98; BMI 22.3
[2023-02-01] MEDS ORDERED: ACETAMINOPHEN 500 MG TABLET (FP) PO ONE ×2 (13:54→14:16)
[2023-02-01] MEDS ORDERED: ACETAMINOPHEN 500 MG TABLET (FP) ONE (14:08)
== END 2023-02-01 14:23 | disposition home or self-care (01) ==
LOC: JER 13:00 → JERFT 13:00
DX: M54.50 Low back pain, unspecified (principal); V78.6XXA Passenger on bus injured in noncollision transport accident in traffic accident, initial encounter
CPT/HCPCS: 99283-25

== ENCOUNTER → 2023-03-19 | Day surgery (SDC) | payer OTHER | END | disposition home or self-care (01) | LOC: JMAMMO-SUR 08:33 → JRADUS-SUR 08:33 | PROVIDERS: ATTEND Nurse Practitioner Family | PROC: 0HBT3ZX Excision of Right Breast, Percutaneous Approach, Diagnostic (ICD-10-PCS; principal; 2023-03-19) | DX: N63.13 Unspecified lump in the right breast, lower outer quadrant (principal); N64.89 Other specified disorders of breast | CPT/HCPCS: 19083; 77065-TC; 87899; A4648 ==